=== PATIENT | male | born 1990 | race Caucasian/White ===

== ENCOUNTER 2019-12-04 09:03 | Emergency (ER) | payer BC, SELFPAY ==
[2019-12-04] VITALS (8 sets, daily range): BP systolic 128–160; BP diastolic 78–100; PULSE 97–115; RESP 20–32; TEMP 36.6–37.1; O2SAT 94–97
--- NOTE | ~2019-12-04 | CT_ITS ---
EXAMINATION: CTA chest PE protocol DATE: 12/04/2019 11:03 CDT INDICATION: Shortness of breath TECHNIQUE: Computed tomographic angiography (CTA) of the chest was performed with 100 mL Omnipaque-35 0 intravenous contrast. The dose-length product was 741.59 mGy-cm. Maximum intensity projection 3D-re constructions of the aorta and other arteries were constructed by the technologist on a separate work station. COMPARISON: CT dated 12/04/2019. FINDINGS: Study is technically limited for evaluation of the peripheral pulmonary arteries due to erin us timing and motion artifact, particularly in the lower lobes. No large central pulmonary embolism i s identified. Mildly enlarged mediastinal and right hilar lymph nodes, likely reactive. Right hilar l ymph node measures 1.6 cm. No significant pleural or pericardial effusion. Heart size normal. Small h iatal hernia. Upper abdomen is unremarkable. There is dependent atelectasis. Subtle reticulonodular d ensities in the right lower lobe most likely represent atelectasis, although developing pneumonia is not excluded. IMPRESSION: 1. No large central pulmonary embolism. Study technically limited for evaluation of peripheral pulmon shanice arteries particularly the lower lobes. 2: Dependent atelectasis with reticulonodular densities right lower lobe. This is most likely also at electasis, although very early pneumonia is not excluded. 3: Mediastinal and right hilar lymphadenopathy, likely reactive. Reviewed, dictated and finalized at location A. IMPRESSION: 1. No large central pulmonary embolism. Study technically limited for evaluatio n of peripheral pulmonary arteries particularly the lower lobes. 2: Dependent atelectasis with reticulonodular densities right lower lobe. This is most likely also atelectasis, although very early pneumonia is not excluded. 3: Mediastinal and right hilar lymphadenopathy, likely reactive.
--- NOTE | ~2019-12-04 | CT_ITS ---
EXAMINATION: CTA chest PE protocol DATE: 12/04/2019 10:26 CDT INDICATION: Redness of breath TECHNIQUE: Computed tomographic angiography (CTA) of the chest was performed with 100 mL Omnipaque-35 0 intravenous contrast. The dose-length product was 627.13 mGy-cm. Maximum intensity projection 3D-re constructions of the aorta and other arteries were constructed by the technologist on a separate work station. COMPARISON: None. FINDINGS: Study is nondiagnostic for evaluation of pulmonary embolism. No significant pleural or fernando cardial effusion. Heart size normal. Small hiatal hernia. No thoracic lymphadenopathy. Minimal depend ent atelectasis. No endobronchial lesions. No acute osseous abnormality. No focal airspace consolidat ion to suggest pneumonia. IMPRESSION: 1. No acute cardiopulmonary disease. Study nondiagnostic for pulmonary embolism. Reviewed, dictated and finalized at location A. IMPRESSION: 1. No acute cardiopulmonary disease. Study nondiagnostic for pulmonary embolism .
[2019-12-04 09:42] LABS: Basophils Percent Auto 0.5 % (0.2-1.2); Eosinophils Absolute Auto 0.3 K/mm3 (0-0.3); Eosinophils Percent Auto 5.1 % (0-4.4); Hematocrit 41.6 % (42.0-52.0); Hemoglobin 14.4 g/dL (14.0-18.0); Immature Granulocyte Absolute 0.03 K/mm3 (0.00-0.031); Immature Granulocyte Percent A 0.5 % (0-0.5); Mean Corpuscular HGB Conc 34.6 g/dl (32-36); Mean Corpuscular Hemoglobin 29.9 pg (26-34); Mean Corpuscular Volume 86.5 fl (80-100); Mean Platelet Volume 11.8 fl (7.4-10.4); Monocytes Absolute Auto 0.4 K/mm3 (0.1-0.6); Monocytes Percent Auto 5.8 % (2.6-8.5); Neutrophils Percent Auto 64.1 % (45.5-73.1); Platelet Count Result 225 k/mm3 (150-375); Red Blood Count 4.81 M/mm3 (4.6-6.20); Red Cell Distribution Width 12.9 % (11.5-14.5); White Blood Count 6.2 K/mm3 (4.5-10.0)
[2019-12-04 09:54] LABS: Alanine Aminotransferase 69 U/L (4-50); Albumin Level 4.1 g/dL (3.5-5.1); Alkaline Phosphatase 61 U/L (38-126); Aspartate Amino Transferase 34 U/L (17-59); Blood Urea Nitrogen 14 mg/dL (9-20); Calcium 8.9 mg/dL (8.4-10.2); Carbon Dioxide 26 mmol/L (22-30); Chloride 105 mmol/L (98-107); Estimated CRCL calculation 148 ml/min; Estimated Glomerular Filt Rate > 60; Glucose 143 mg/dL (75-110); Potassium 3.4 mmol/L (3.4-5.0); Sodium 138 mmol/L (137-145)
[2019-12-04] MEDS: SODIUM CHLORIDE 0.9% IV 3,100 ML/1,000 ML BAG 999 ML IV CONT ×2 (09:57→12:53)
[2019-12-04 10:24] LABS: Prothrombin Time 12.6 Seconds (11.1-14.7)
[2019-12-04 10:25] LABS: Partial Thromboplastin Time 27.5 SECONDS (22.3-36.8)
[2019-12-04 10:29] LABS: Lactic Acid Reflex 1.2 mmol/L (0.7-2.1)
[2019-12-04 10:36] LABS: CRP 2.3 mg/dL (<1.0)
[2019-12-04 10:44] LABS: Add Urine Microscopic? NO; Appearance Urine Clear (Clear); Bilirubin Urine Negative (Negative); Blood Urine Negative (Negative); Color Urine Yellow (Yellow); Glucose Urine UA Negative (Negative); Ketones Urine Negative (Negative); Leukocyte Esterase Ur Negative LEU/UL (Negative); Nitrate Urine Negative (Negative); Protein Urine Negative (Negative); Urobilinogen Urine Negative mg/dL (<2.0)
[2019-12-04 10:45] LABS: NT Pro B Type Natriuretic Pept 33 PG/ML (5-100); Troponin I < 0.012 ng/mL (0.000-0.034)
[2019-12-04 10:46] LABS: Specific Grav Ur 1.035 (1.001-1.035)
[2019-12-04 11:04] LABS: Erythrocyte Sedimentation Rate 26 mm/hr (0-20)
--- NOTE | 2019-12-04 11:25 | ED.GENADULT ---
HPI - General Adult General Chief complaint: Upper Respiratory Infection Stated complaint: Difficulty breathing Time Seen by Provider: 12/04/19 09:44 Source: patient Mode of arrival: ambulatory History of Present Illness HPI narrative: Patient is a 28-year-old male who presents with fever chills body aches that has been present now for the last week patient was seen Friday for his symptoms diagnosed with upper respiratory infection started on amoxicillin and a Medrol Dosepak patient notes he has continued to not feel well with chills sweats fatigue body aches and some dyspnea with activity and exertion patient denies vomiting diarrhea wounds rash or similar occurrence in the past patient on arrival is in the room in no distress. Patient is also been taking [id number] medications Related Data Allergies Allergy/AdvReac Type Severity Reaction Status Date / Time No Known Allergies Allergy Verified 12/04/19 09:17 Review of Systems Review of Systems: All systems reviewed & are unremarkable except as noted in HPI and below Exam Narrative: Exam Narrative: GENERAL: Ill-appearing, well-nourished, and in no acute distress. HEAD: Normocephalic, atraumatic. EYES: PERRLA and EOMI. ENT: Nares clear, no rhinorrhea or epistaxis. Mucous membranes moist. Oropharynx with erythema and without tonsillar hypertrophy exudate or other lesions. Bilateral TMs pearly brown nonbulging NECK: Supple. No adenopathy or masses. CHEST: Clear to auscultation. No respiratory distress. No wheezes rales or rhonchi HEART: Regular rate and rhythm. No murmur heard. Normal peripheral pulses. ABDOMEN: Soft, nontender, nondistended. EXTREMITIES: Normal range of motion. No edema. SKIN: Warm, dry, no rash. NEURO: No focal deficits. Alert and oriented x3. Cranial nerves II through XII grossly intact. No nuchal rigidity or meningismus PSYCH: Normal mood and affect. Course Vital Signs Vital signs: Vital Signs Temperature 97.8 F 12/04/19 09:12 Pulse Rate 115 H 12/04/19 09:12 Respiratory Rate 21 H 12/04/19 09:12 Blood Pressure 160/100 H 12/04/19 09:12 Pulse Oximetry 94 12/04/19 09:12 Temperature 97.8 F 12/04/19 09:12 Pulse Rate 111 H 12/04/19 11:04 Respiratory Rate 28 H 12/04/19 11:04 Blood Pressure 132/78 12/04/19 11:04 Pulse Oximetry 95 12/04/19 11:04 Medical Decision Making [facility] Narrative Medical decision making narrative: Patient aware of case findings treatment plan and diagnosis extensive amount of time was spent educating the patient on his care treatment plan diagnosis he was hydrated and is feeling much better in the bed at this time was able to ambulate without becoming hypoxic. It is felt best that the patient can be attempted to be managed at home with medications and strict reasons to return. Patient is afebrile nontoxic-appearing without emesis. At this time the presumptive diagnosis of strep pharyngitis will be given. Vital Signs Vital Signs: Vital Signs Temperature 97.8 F 12/04/19 09:12 Pulse Rate 115 H 12/04/19 09:12 Respiratory Rate 21 H 12/04/19 09:12 Blood Pressure 160/100 H 12/04/19 09:12 Pulse Oximetry 94 12/04/19 09:12 Temperature 97.8 F 12/04/19 09:12 Pulse Rate 111 H 12/04/19 11:04 Respiratory Rate 28 H 12/04/19 11:04 Blood Pressure 132/78 12/04/19 11:04 Pulse Oximetry 95 12/04/19 11:04 Lab Data Result diagrams: 12/04/19 09:35 12/04/19 09:36 Labs: Lab Results 12/04/19 12/04/19 12/04/19 Range/Units 09:35 09:36 09:36 WBC 6.2 (4.5-10.0) K/mm3 RBC 4.81 (4.6-6.20) M/mm3 Hgb 14.4 (14.0-18.0) g/dL Hct 41.6 L (42.0-52.0) % MCV 86.5 (80-100) fl MCH 29.9 (26-34) pg MCHC 34.6 (32-36) g/dl RDW 12.9 (11.5-14.5) % Plt Count 225 (150-375) k/mm3 MPV 11.8 H (7.4-10.4) fl Immature Gran % (Auto) 0.5 (0-0.5) % Neut % (Auto) 64.1 (45.5-73.1) % Lymph % (Auto) 24.0 (18.3-44.2)
[2019-12-04 11:57] LABS: Monoscreen Negative (Negative); Negative Monotest Control Negative (Negative); Positive Monotest Control Positive (Positive)
[2019-12-04 12:36] LABS: Lactic Acid Reflex 0.9 mmol/L (0.7-2.1)
--- NOTE | 2019-12-04 12:37 | ECG_ITS ---
Measurements Intervals [place] Rate: 112 P: 48 SD: 165 QRS: 14 QRSD: 103 T: 38 QT: 339 QTc: 463 Interpretive Statements SINUS TACHYCARDIA POSSIBLE LEFT ATRIAL ENLARGEMENT POSSIBLE LEFT VENTRICULAR HYPERTROPHY MINIMAL Q WAVES- LATERAL LEADS NONSPECIFIC ST & T-WAVE ABNORMALITY- DIFFUSE LEADS BASELINE ARTIFACT- II, III, AVF, V1 ABNORMAL ECG Electronically Signed On 12-04-2019 15:21:48 CDT by Devyn Norris D.O.
[2019-12-04] MEDS: ALBUTEROL SULFATE NEB 2.5 MG/0.5 ML INH 5 MG INHALATION (12:57)
[2019-12-04] MEDS: IPRATROPIUM BR 0.02% INH SOLN 0.5 MG/2.5 ML VIAL INHALATION (12:57)
== END 2019-12-04 13:31 | disposition home or self-care (01) ==
PROVIDERS: Emergency Medicine Emergency Medical Services; Emergency Provider Emergency Medicine
DX: J02.0 Streptococcal pharyngitis (principal); R00.0 Tachycardia, unspecified; R94.31 Abnormal electrocardiogram [ECG] [EKG]
CPT/HCPCS: 36415; 71275; 80053; 81003; 83605; 83880; 84484; 85025; 85610; 85652; 85730; 86140; 86308; 87040; 87804; 87880; 93005; 94640; 96361; 96365; 99284; J0131; J7030; Q9967